=== PATIENT | female | born 1970 | race Hispanic/Latino ===

== ENCOUNTER 2018-02-20 12:46 | Emergency (ER) | payer OTHER ==
[~2018-02-20] VITALS: Ht 162.6 cm; Wt 72.1 kg
[~2018-02-20 12:46] MED LIST: AMITRIPTYLINE H50 M2 PO; B-1100 MG PO; BACTRIM DS TAB1 EACH PO; HUMALOG MI100 UNIT/4 SC; IBUPROFEN800 M1 PO; TRESIBA FL100 UNIT/1 SC; TROKENDI XR100 MG PO; VITAMIN B-121000 MC3 PO; VIVELLE-DOT1 EAC1 TOP
[2018-02-20 12:49] VITALS: BP 163/92
--- NOTE | 2018-02-20 13:35 | ED NECK/BACK PAIN COMPLAINT ---
History of Present Illness General Chief Complaint: General Adult Stated Complaint: PT IN THE ARM AND BACK Source: patient, family, old records Exam Limitations: no limitations Vital Signs & Intake/Output Vital Signs & Intake/Output Vital Signs Date Time Temp Pulse Resp B/P B/P Pulse O2 O2 Flow FiO2 Mean Ox Delivery Rate 02/20 1249 97.0 74 20 163/92 98 Room Air Allergies Coded Allergies: codeine (THROAT NUMBNESS 10/30/17) sumatriptan (CHEST PAIN 10/30/17) Reconcile Medications Amitriptyline HCl 50 MG TABLET 1 TAB PO QPM MIGRAINES (Reported) Cyanocobalamin (Vitamin B-12) (Unknown Strength) TABLET (Unknown Dose) PO DAILY SUPPLEMENT (Reported) Cyclobenzaprine HCl 10 MG TABLET 1 TAB PO Q8P PAIN OR SPASM Estradiol (Vivelle-Dot) 0.05 MG/24 HOUR PATCH.TDSW 1 PATCH TOP 2XW HRT ( Reported) Ibuprofen 800 MG TABLET 1-2 TAB PO DAILY MIGRAINES (Reported) Insulin Degludec (Tresiba Flextouch U-100) 100 UNIT/ML (3 ML) INSULN.PEN 24 UNITS SC QPM DM (Reported) Insulin NPL/Insulin Lispro (Humalog Mix 50-50 Kwikpen) 100 UNIT/ML (50-50) INSULN.PEN 20 UNIT SC BID DM (Reported) Oxycodone HCl/Acetaminophen (Percocet 5-325 MG Tablet) 5 MG-325 MG TABLET 1-2 TAB PO Q6P PRN PAIN Sulfamethoxazole/Trimethoprim (Bactrim Ds Tablet) 800 MG-160 MG TABLET 1 TAB PO BID uti Thiamine HCl (B-1) (Unknown Strength) TABLET (Unknown Dose) PO DAILY SUPPLEMENT (Reported) Topiramate (Trokendi XR) 100 MG CAP.ER.24H 1 CAP PO QPM MIGRAINES (Reported) Triage Note: PT TO ED C/O LEFT ARM AND LEFT SIDED BACK PAIN SINCE THIS AM. TOOK MOTRIN 800MG AT 0800 WITH NO RELIEF. DENIES INJURY/FALL. Triage Nurses Notes Reviewed? yes HPI: Shortly after waking up this morning patient noticed a severe pulling sensation in her left mid back. The pain then began radiating around to her chest and then down her left arm. The pain increases with movement. The pain decreases when she lays still but does not go away entirely. At its worse the pain is 10 out of 10 and was laying still is closed onto a 6 out of 10. There is no shortness of breath. There is no lightheadedness. There is no nausea or vomiting. There is no weakness or numbness. There is no incontinence of bowel or bladder. Past History Travel History Traveled to [place] past 21 day No Medical History Any Pertinent Medical History? 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 No Review of Systems Review of Systems Constitutional: Reports: no symptoms. Eyes: Reports: no symptoms. Ears, Nose, Throat, Mouth: Reports: no symptoms. Respiratory: Reports: no symptoms. Cardiovascular: Reports: no symptoms. Gastrointestinal/Abdominal: Reports: no symptoms. Musculoskeletal: Reports: see HPI, back pain. Skin: Reports: no symptoms. Neurological/Psychological: Reports: no symptoms. All Other Systems: Reviewed and Negative Physical Exam Physical Exam General Appearance: well developed/nourished, mild distress Head: atraumatic Eyes: Bilateral: PERRL, EOMI. Ears, Nose, Throat, Mouth: hearing grossly normal Neck: normal inspection, supple, full range of motion Respiratory: normal breath sounds, chest non-tender, no respiratory distress, lungs clear Cardiovascular: regular rate/rhythm Gastrointestinal: normal bowel sounds, soft, non-tender Back: normal inspection, muscle spasm, no vertebral tenderness Extremities: normal range of motion Neurologic/Psych: awake, alert, oriented x 3, normal mood/affect Skin: intact, normal color, warm/dry Core Measures CVA/TIA Diagnosis: No Progress Differential Diagnosis: myofascial strain, T/L spine injury Plan of Care: Orders Procedure Date/time Status EKG 02/20 1319 Active Diagnostic Imaging: Viewed by Me: Radiology Read. Discussed w/RAD: Radiology Read. CXR Impression: PATIENT: LINCOLN RIVERA PRESENT AGE: 47 PATIENT ACCOUNT NO: [id number] : 69 LOCATION: [facility] ORDERING PHYSICIAN: Canelo Hodge MD SERVICE DATE: 02/20/180941 EXAM TYPE: RAD - XRY-CHEST XRAY, TWO VIEWS EXAMINATION: CHEST 2 VIEWS CLINICAL INFORMATION: Chest pain. COMPARISON: None. TECHNIQUE: PA and lateral views of the chest were obtained. FINDINGS: The cardiac silhouette is not enlarged. The mediastinal and hilar contours are unremarkable. There are neither pleural effusions nor pneumothoraces. There are no consolidations. The osseous structures are unremarkable. IMPRESSION: No evidence for acute disease. DICTATED BY: Venancio Prasad MD DATE/TIME DICTATED:02/20/181501 ELECTRIC SCOOP OPERATOR:JOHN DATE/TIME TRANSCRIBED:02/20/181501 CONFIDENTIAL, DO NOT COPY WITHOUT APPROPRIATE AUTHORIZATION. <Electronically signed in Other Vendor System> SIGNED BY: Venancio Prasad MD 02/20/181505 Initial ED EKG: NSR, nonspecific ST T wave chg Prior EKG: unchanged Departure Departure Disposition: HOME OR SELF CARE Condition: Stable Clinical Impression Primary Impression: Muscle spasm Referrals: Rodo SALAS,Nick Macedo (PCP/Family) Additional Instructions: USEMOIST HEAT TAKE FLEXERIL DIRECTED TAKE PERCOCET NEEDED FOR SEVERE PAIN RETURN IF SYMPTOMS WORSEN OR FOR ANY CONCERNS Departure Forms: Customer Survey General Discharge Information Prescriptions: Current Visit Scripts Cyclobenzaprine HCl 1 TAB PO Q8P #20 TAB Oxycodone HCl/Acetaminophen (Percocet 5-325 MG Tablet) 1-2 TAB PO Q6P PRN PAIN #20 TAB
--- NOTE | 2018-02-20 15:06 | RADIOLOGY REPORT ---
EXAMINATION: CHEST 2 VIEWS CLINICAL INFORMATION: Chest pain. COMPARISON: None. TECHNIQUE: PA and lateral views of the chest were obtained. FINDINGS: The cardiac silhouette is not enlarged. The mediastinal and hilar contours are unremarkable. There are neither pleural effusions nor pneumothoraces. There are no consolidations. The osseous structures are unremarkable. IMPRESSION: No evidence for acute disease.
[2018-02-20] MEDS ORDERED: PERCOCET 5-3251 EACH PO (15:34)
[2018-02-20] MEDS ORDERED: CYCLOBENZAPRINE10 M1 PO (15:34)
[2018-02-21] MEDS ORDERED: MEDROL4 M2 PO (13:23)
== END 2018-02-20 15:38 ==
LOC: ERH 12:46
DX: M62.830 Muscle spasm of back (principal)
CPT/HCPCS: 71046; 93005; 93010; 96372; J1885

== ENCOUNTER 2018-03-02 11:53 | Emergency (ER) | payer OTHER ==
[~2018-03-02] VITALS: Ht 175.3 cm; Wt 72.1 kg
[~2018-03-02 11:53] MED LIST changes: +CYCLOBENZAPRINE10 M1 PO; +MEDROL4 M2 PO; +PERCOCET 5-3251 EACH PO
[2018-03-02 12:10] VITALS: BP 155/88
== END 2018-03-02 13:32 | disposition admitted as inpatient to this hospital (09) ==
LOC: ERH 11:53
DX: M54.2 Cervicalgia (principal); M54.9 Dorsalgia, unspecified

== ENCOUNTER 2018-07-21 17:07 | Emergency (ER) | payer OTHER ==
[~2018-07-21] VITALS: Ht 170.2 cm; Wt 75.8 kg
[2018-07-21 20:29] LABS: ABSOLUTE BASOPHIL COUNT 0 /CUMM (0.0-0.2); ABSOLUTE EOSINOPHIL COUNT 0.2 /CUMM (0.0-0.7); ABSOLUTE LYMPH COUNT 2.5 /CUMM (1.2-3.4); ABSOLUTE MONOCYTE COUNT 0.3 /CUMM (0.10-0.60); BASOPHIL % 0.4 % (0.0-2.0); EOSINOPHIL % 2.5 % (0-5); GRANULOCYTE % 61.8 % (42.2-75.2); HEMATOCRIT 40.6 % (37-47); MEAN CORPUSCULAR HGB 30.9 PG (27.0-31.0); MEAN CORPUSCULAR HGB CONC 33.3 G/DL (33.0-37.0); MEAN PLATELET VOLUME 7.7 FL (7.4-10.4); PLATELET COUNT 413 /CUMM (130-400); RED BLOOD CELL CT 4.37 /CUMM (4.20-5.40); WHITE BLOOD CELL COUNT 8.1 /CUMM (4.8-10.8)
--- NOTE | 2018-07-21 20:56 | ED PSYCHIATRIC COMPLAINT ---
History of Present Illness General Chief Complaint: Psychiatric Related Complaint Stated Complaint: SI Source: patient Exam Limitations: no limitations Vital Signs & Intake/Output Vital Signs & Intake/Output Vital Signs Date Time Temp Pulse Resp B/P B/P Pulse O2 O2 Flow FiO2 Mean Ox Delivery Rate 07/22 0700 97.6 101 20 120/69 97 Room Air 07/22 0215 97.8 98 16 134/60 98 Room Air 07/21 2307 98.0 112 20 130/68 99 Room Air 07/21 2037 98.3 98 20 138/70 97 Room Air 07/21 1730 98.3 114 20 115/68 98 Room Air ED Intake and Output 07/22 0000 07/21 1200 Intake Total Output Total Balance Patient 167 lb Weight Weight Reported by Patient Measurement Method Allergies Coded Allergies: codeine (THROAT NUMBNESS 10/30/17) sumatriptan (CHEST PAIN 10/30/17) Reconcile Medications Amitriptyline HCl 50 MG TABLET 1 TAB PO QPM MIGRAINES (Reported) Cyanocobalamin (Vitamin B-12) (Unknown Strength) TABLET (Unknown Dose) PO DAILY SUPPLEMENT (Reported) Cyclobenzaprine HCl 10 MG TABLET 1 TAB PO Q8P PAIN OR SPASM Estradiol (Vivelle-Dot) 0.05 MG/24 HOUR PATCH.TDSW 1 PATCH TOP 2XW HRT ( Reported) Ibuprofen 800 MG TABLET 1-2 TAB PO DAILY MIGRAINES (Reported) Insulin Degludec (Tresiba Flextouch U-100) 100 UNIT/ML (3 ML) INSULN.PEN 24 UNITS SC QPM DM (Reported) Insulin NPL/Insulin Lispro (Humalog Mix 50-50 Kwikpen) 100 UNIT/ML (50-50) INSULN.PEN 20 UNIT SC BID DM (Reported) Methylprednisolone. (Medrol) 4 MG TAB.DS.PK 1 DP PO AD DISK HERNIATION 6 on day 1 then reduce by one tablet daily until gone Oxycodone HCl/Acetaminophen (Percocet 5-325 MG Tablet) 5 MG-325 MG TABLET 1-2 TAB PO Q6P PRN PAIN Sulfamethoxazole/Trimethoprim (Bactrim Ds Tablet) 800 MG-160 MG TABLET 1 TAB PO BID uti Thiamine HCl (B-1) (Unknown Strength) TABLET (Unknown Dose) PO DAILY SUPPLEMENT (Reported) Topiramate (Trokendi XR) 100 MG CAP.ER.24H 1 CAP PO QPM MIGRAINES (Reported) Triage Note: PT BIBA C/O SI. PT STATES THAT SHE HAD BACK PAIN S/P SURGERY IN JUNE AND STATES THAT SHE WILL NOT LIVE WITH THIS PAIN ANYMORE. VISITING NURSE CALLED. PT STATES THAT IT IS AGAINST HER GNOSTICIST TO TAKE HER LIFE. PT IS ON PEC Triage Nurses Notes Reviewed? yes HPI: Patient presents for evaluation of suicidal ideation. Patient admits that she has been having suicide thoughts due to a chronic left arm pain she experiences. She states she never had any real intent but apparently somebody called the police, who requested an emergency evaluation. (Miriam SALAS,Vance Renae) Past History Travel History Traveled to [place] past 21 day No Medical History Any Pertinent Medical History? 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 No (Miriam SALAS,Vance Renae) Review of Systems Review of Systems Constitutional: Reports: no symptoms. EENTM: Reports: no symptoms. Respiratory: Reports: no symptoms. Cardiovascular: Reports: no symptoms. GI: Reports: no symptoms. Genitourinary: Reports: no symptoms. Musculoskeletal: Reports: no symptoms. Skin: Reports: no symptoms. Neurological/Psychological: Reports: see HPI. Hematologic/Endocrine: Reports: no symptoms. Immunologic/Allergic: Reports: no symptoms. All Other Systems: Reviewed and Negative (Miriam SALAS,Vance Renae) Physical Exam Physical Exam General Appearance: SEE BELOW Neurological/Psychiatric: SEE BELOW Comments: General: Alert, calm, cooperative Head: Normocephalic, atraumatic Eyes: Normal inspection, no nystagmus, EOMI Ears: Normal inspection Nose: Normal inspection Throat: Moist mucosa Neck: Supple, no goiter Heart: Regular rate and rhythm, no murmurs rubs or gallops Lungs: Clear to auscultation bilaterally with good air entry Abdomen: Soft nontender nondistended, normal bowel sounds Chest: Nontender Extremities: Decreased range of motion of the left upper extremity secondary to pain, no tremors present, no cyanosis present Neurologic: cranial nerves II through XII grossly intact, speech clear, gait normal Psychiatric: No apparent delusions or hallucinations, no pressured speech or thought blocking, depressed affect SAD PERSONS Done? deferred to crisis (Miriam SALAS,Vance Renae) Progress Differential Diagnosis: depression, anxiety, bipolar disorder, personality disorder Plan of Care: Orders Procedure Date/time Status Regular Diet 07/22 B Active Add-on Test (ER Only) 07/21 2055 Active Continuous Observation Monitor 07/21 2055 Active ED CRISIS PSYCH CONSULT 07/21 2055 Active ETHANOL 07/21 2015 Complete URINE DRUG SCREEN FOR ER ONLY 07/21 2006 Complete COMPREHENSIVE METABOLIC PANEL 07/21 2006 Complete CBC WITHOUT DIFFERENTIAL 07/21 2006 Complete Current Medications Sig/Riki Start time Last Medication Dose Stop Time Status Admin Amitriptyline HCl 50 MG QPM 07/22 2100 UNVr 07/22 (Elavil 50 MG Tablet) 0130 Gabapentin 900 MG QPM 07/22 2100 UNVr 07/22 (Neurontin) 0130 Insulin Detemir 36 UNITS QPM 07/22 2100 UNVr 07/22 (Levemir) 0130 Topiramate 100 MG QPM 07/22 2100 UNVr 07/22 (Topamax) 0130 Atorvastatin Calcium 40 MG 1700 07/22 1700 UNVr (Lipitor) Gabapentin 300 MG QAM 07/22 0900 UNVr 07/22 (Neurontin) 0715 Insulin Human Isoph/ 20 UNITS BID 07/22 0900 UNVr Insulin Regular (Novolin 70/30) Oxycodone HCl 5 MG Q6 PRN 07/22 0145 UNVr 07/22 (Roxicodone) 0715 Insulin Aspart Prota 20 UNIT BID 07/22 0101 CAN 70%/Aspart 30% (Novolog Mix 70/30) Laboratory Tests 07/21/182204: Urine Opiates Screen 111, Methadone Screen 48, Barbiturate Screen < 60, Ur Phencyclidine Scrn < 6.00, Amphetamines Screen < 100, U Benzodiazepines Scrn > 800 H, Urine Cocaine Screen < 50, Urine Cannabis Screen < 5.00 07/21/182014: Anion Gap 10, Estimated GFR > 60, BUN/Creatinine Ratio 26.7 H, Glucose 137 H, Calcium 9.9, Total Bilirubin 0.3, AST 18, ALT 32, Alkaline Phosphatase 95, Total Protein 7.8, Albumin 4.3, Globulin 3.5, Albumin/Globulin Ratio 1.2, CBC w Diff NO MAN DIFF REQ, RBC 4.37, MCV 93.0, MCH 30.9, MCHC 33.3, RDW 13.0, MPV 7.7, Gran % 61.8, Lymphocytes % 31.0, Monocytes % 4.3, Eosinophils % 2.5, Basophils % 0.4, Absolute Granulocytes 5.0, Absolute Lymphocytes 2.5, Absolute Monocytes 0.3 , Absolute Eosinophils 0.2, Absolute Basophils 0, Serum Alcohol < 10.0 Comments: 07/22/2018 11:40 AM patient 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 (Miriam SALAS,Vance Renae) Departure Departure Condition: Stable Referrals: Rodo SALAS,Nick Macedo (PCP/Family) Departure Forms: Customer Survey General Discharge Information (Miriam SALAS,Vance Renae) Departure Comments pt to be signed out to dr. castañeda 07/22/18, 7am. (Starla SALAS,Javier Landaverde) Departure Disposition: HOME OR SELF CARE Clinical Impression Primary Impression: Suicide ideation Secondary Impressions: Neck pain Comments Patient seen by crisis consult, please see consult note. Subacute neck pain secondary to cervical spinal surgery. Mobic prescribed. Please note that there might be incidental findings in your evaluation that are unrelated to the current emergency department visit. Please notify your primary care doctor about this emergency department visit in order to obtain and review all of the testing performed so that these incidental findings can be monitored as needed. If you had an x-ray performed, please understand that some fractures may not be seen on the initial set of x-rays. If your symptoms persist you might need a repeat set of x-rays to check for such a fracture. If you had a laceration evaluated, please understand that foreign bodies such as glass or wood may not be visible to the naked eye or on plain x-rays. If the wound becomes red, swollen, increasingly more painful or if there is any drainage from the wound, please have it reevaluated by a physician for the possibility of a retained foreign body. If you're unable to follow up as outlined in the discharge instructions please return to the emergency department. (Arnaud SALAS,Glendy
[2018-07-22] MEDS ORDERED: MOBIC7.5 M1 PO (08:44)
[2018-07-22 09:00] VITALS: BP 126/88
--- NOTE | 2018-07-22 10:36 | ED PSYCH CRISIS CONSULTATION ---
Crisis Consult Basic Assessment Date of Consult: 07/22/18 Responsible Person/Accompanied By: self/biba/PEER Insurance Authorization: Insurance #1: Insurance name: ZEHRA COLLINS Phone number: Policy number: [id number] Group number: Authorization number: ED Provider: Patient's ED Provider: Vanec Pineda MD Primary Care Physician: Patient's PCP: Nick Koehler MD PCP's Current Psychiatrist: savita Chief Complaint: Psychiatric Related Complaint Patient's Quote: I won't do it because of my catholic Present Illness: Pt is a 47yo female biba to [facility] yesterday on a [place] [employer] PEER. Pt had stated to her visiting nurse and OT that she no longer wanted to live with her pain. Pt had cervical surgery June 23 and reports no feeling she has gained any relief. Pt denies being suicidal and insists she wouldn't harm herself as it is against her catholic. Pt reports being a practicing Religious. Pt denies prior SI. Pt denies HI/AH/VH. Pt denies gun access. Pt reports one episode of psychiatric treatment in 2001 following the of her mother. She was admitted then to CPS. She denies further MH Tx . She denies etoh/substance use. Pt reports she is and has two adult children and grandchildren. She isn't working. She presents as calm; cooperative and OX3. She denies interest or need in outpatient psychiatric services. Collateral provided by Nadege AARON of pain clinic [phone] and discussed pt recent surgery and expectation that she will be in pain for awhile. She recommends adding mobic to aid in pain relief and pt next follow up appt is Aug 17. Case reviewed with Dr Fenton and pt cleared for discharge. notified and will grape picker pt to return home. Patient's Address: [address] [place] [address] Other Phone Number: Who Do You Live With? Family ( 2 adult children) Family/Informants Interviewed: collateral provided by pt Mitch . He reports being surprised about what happened as he was at work. He reports pt is fine not depressed but is in a lot of pain. He feels pt is safe to be home and will will follow up with her provider. Allergies - Coded Allergies: codeine (THROAT NUMBNESS 10/30/17) sumatriptan (CHEST PAIN 10/30/17) Current Medications - Scheduled Medications Amitriptyline HCl 50 MG TABLET 1 TAB PO QPM MIGRAINES #90 (Reported) Entered as Reported by Renuka Huston on 10/30/171655 Cyanocobalamin (Vitamin B-12) (Unknown Strength) TABLET (Unknown Dose) PO DAILY SUPPLEMENT (Reported) Entered as Reported by Renuka Huston on 10/30/171655 Cyclobenzaprine HCl 10 MG TABLET 1 TAB PO Q8P PAIN OR SPASM #20 TAB Prescribed by Canelo Hodge MD on 02/20/18 Estradiol (Vivelle-Dot) 0.05 MG/24 HOUR PATCH.TDSW 1 PATCH TOP 2XW HRT #8 ( Reported) Entered as Reported by Renuka Huston on 10/30/171656 Ibuprofen 800 MG TABLET 1-2 TAB PO DAILY MIGRAINES (Reported) Entered as Reported by Renuka Huston on 10/30/171657 Insulin Degludec (Tresiba Flextouch U-100) 100 UNIT/ML (3 ML) INSULN.PEN 24 UNITS SC QPM DM (Reported) Entered as Reported by Renuka Huston on 10/30/171654 Insulin NPL/Insulin Lispro (Humalog Mix 50-50 Kwikpen) 100 UNIT/ML (50-50) INSULN.PEN 20 UNIT SC BID DM (Reported) Entered as Reported by Renuka Huston on 10/30/171654 Methylprednisolone. (Medrol) 4 MG TAB.DS.PK 1 DP PO AD DISK HERNIATION #1 DP Prescribed by Canelo Hodge MD on 02/21/18 Sulfamethoxazole/Trimethoprim (Bactrim Ds Tablet) 800 MG-160 MG TABLET 1 TAB PO BID uti #14 TAB Prescribed by Chico Andino on 10/30/17 Thiamine HCl (B-1) (Unknown Strength) TABLET (Unknown Dose) PO DAILY SUPPLEMENT (Reported) Entered as Reported by Renuka Huston on 10/30/171655 Topiramate (Trokendi XR) 100 MG CAP.ER.24H 1 CAP PO QPM MIGRAINES #30 ( Reported) Entered as Reported by Renuka Huston on 10/30/17 1656 Scheduled PRN Medications Meloxicam (Mobic) 7.5 MG TABLET 1 TAB PO DAILY PRN pain #30 TAB Prescribed by Ed Lares MD on 07/22/18 Oxycodone HCl/Acetaminophen (Percocet 5-325 MG Tablet) 5 MG-325 MG TABLET 1-2 TAB PO Q6P PRN PAIN #20 TAB Prescribed by Canelo Hodge MD on 02/20/18 Past History Past Medical History Neurological: NEUROPATHY MIGRAINES EENT: NONE Cardiovascular: hyperlipidemia Respiratory: NONE Gastrointestinal: NONE Hepatic: NONE Renal: NONE Musculoskeletal: NONE Psychiatric: NONE Endocrine: diabetes Blood Disorders: NONE Cancer(s): NONE 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 Past Surgical History Surgical History: hysterectomy (total, CORONA BSO), tubal ligation Psychosocial History Strengths/Capabilities: supportive family/ Psychiatric Treatment History Psych Treatment Psychiatric Treatment Yes Inpatient Treatment Yes Outpatient Treatment No Location of Treatment [facility] Reason for Treatment depression following of mother Dates of Treatment 2002 Response to Treatment pt reports no MH tx since Diagnosis by History: depression/bereavement Substance Use/Abuse History Drug Use/Abuse Substances Used/Abused No Substance Abuse Treatment Substance Abuse Treatment Past Substance Abuse [place] No Inpatient Treatment No Outpatient Treatment No Comments: pt denies etoh/substance use Current Mental Status Mental Status Orientation: Person, Place, Situation Affect: WNL Speech: WNL Neuro-vegetative: WNL Appearance Appearance- Dress/Hygiene: hospital scrubs; disheveled; laying in bed; lethargic; easily engaged Behaviors Thought Process: WNL Thought Content: WNL Memory: WNL Insight: Fair SI/HI Risk Assessment Past Suicidal Ideation/Attempts No Current Suicidal Ideation/Att No Past Homicidal Ideation/Att: No Current Homicidal Ideation/Attempts No Degree of Intent: None Risk Factors: chronic/serious med cond. Lethality Ratin (mild) PTSD Checklist PTSD Done? 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 Pt reports suicide is against her catholic - Jehovah Witness; pt denies SI but states she is distressed gabriel carballo has pain from recent surgery and doesn't feel she is getting better. Plan to follow up with Dr Barajas at [facility] Departure Disposition Psych Medical Clearance Date: 07/22/18 Medically Cleared at: 714 Time Started: 714 Time Ended: 799 Psychiatrist Consulted: Moi Fenton MD Date Disposition Established: 07/22/18 Time Disposition Established: 899 Plan for Disposition - Modality: offered outpatient resources/f/u with pain management Facility: Patient to Arrange Contact: Nadege AARON Rationale for Disposition: recent cervical surgery; continued recovery; plan to begin PT in 2 weeks Additional Instructions: pt discharged with prescription for Mobic Referrals Rodo SALAS,Nick Macedo (PCP/Family)
== END 2018-07-22 09:19 ==
LOC: ERH 17:07
PROVIDERS: Emergency Medicine
DX: R45.851 Suicidal ideations (principal); M54.2 Cervicalgia; E11.9 Type 2 diabetes mellitus without complications; Z79.4 Long term (current) use of insulin
CPT/HCPCS: 80307; 96372; G0463; G0480